=== PATIENT | female | born 1985 | race Caucasian/White ===

== ENCOUNTER 2017-03-19 01:44 | Inpatient (IN) | payer BC ==
[2017-03-19] MEDS ORDERED: HYDROCODONE/APAP (5/325) TAB PO (02:30)
[2017-03-19] MEDS ORDERED: ONDANSETRON 4 MG INJ IV ×2 (02:30→05:00)
[2017-03-19] MEDS: morphine 2 MG INJ IV (03:13)
[2017-03-19] MEDS ORDERED: NACL 0.9% 3 ML SYG IV (05:00)
[2017-03-19] MEDS ORDERED: ACETAMINOPHEN 325 MG TAB PO (05:00)
[2017-03-19] MEDS ORDERED: ALBUTEROL/IPRATROPIUM (NEB) 3 ML AMP HHN (05:00)
[2017-03-19 06:43] LABS: ALANINE AMINOTRANSFERASE 59 IU/L (13-69); ALBUMIN 3.5 g/dl (3.3-4.9); ALBUMIN/GLOBULIN RATIO 1.12; ALKALINE PHOSPHATASE 149 IU/L (42-121); ANION GAP 14 (8-16); ASPARTATE AMINO TRANSFERASE 30 IU/L (15-46); BILIRUBIN,INDIRECT 0.2 mg/dl (0-1.1); BILIRUBIN,TOTAL 0.2 mg/dl (0.2-1.3); BLOOD UREA NITROGEN 14 mg/dl (7-20); CALCIUM 8.3 mg/dl (8.4-10.2); CARBON DIOXIDE 24 mmol/L (21-31); CHLORIDE 107 mmol/L (97-110); GLUCOSE 104 mg/dl (70-220); MAGNESIUM 2.2 mg/dl (1.7-2.5); PHOSPHORUS 2.6 mg/dl (2.5-4.9); POTASSIUM 3.6 mmol/L (3.5-5.1); SODIUM 141 mmol/L (135-144); TOTAL PROTEIN 6.6 g/dl (6.1-8.1)
[2017-03-19 06:47] LABS: HEMOGLOBIN A1C 5.5 % (0-5.9)
[2017-03-19] MEDS: FAMOTIDINE 20 MG TAB PO (09:51)
[2017-03-19] MEDS: ALPRAZOLAM 1 MG TAB PO (09:52)
[2017-03-19] MEDS: HEPARIN 5,000 UNIT/0.5 ML VIAL SC (09:55)
[2017-03-19 11:24] LABS: ADD MAN DIFF? NO
[2017-03-19 11:25] LABS: BASOPHILS % 0.3 % (0.0-2.0); EOSINOPHILS # 0.1 10^3/ul (0.0-0.5); EOSINOPHILS % 0.5 % (0.0-7.0); HEMATOCRIT 36.3 % (37.0-47.0); HEMOGLOBIN 11.4 g/dl (12.0-16.0); LYMPHOCYTES % 30.5 % (15.0-51.0); MEAN CORPUSCULAR HEMOGLOBIN 28.9 pg (29.0-33.0); MEAN CORPUSCULAR HGB CONC 31.4 g/dl (32.0-37.0); MEAN CORPUSCULAR VOLUME 91.9 fl (82.0-101.0); MONOCYTE # 0.6 10^3/ul (0.3-0.9); MONOCYTES % 4.5 % (0.0-11.0); NEUTROPHIL # 8.2 10^3/ul (1.6-7.5); NEUTROPHILS % 63.6 % (39.0-77.0); PLATELET COUNT 288 10^3/UL (140-415); RED BLOOD COUNT 3.95 10^6/ul (4.20-5.40)
== END 2017-03-19 12:10 | disposition home or self-care (01) | DRG 392 ==
LOC: MS2 01:44
DX: R10.9 Unspecified abdominal pain (principal); F41.9 Anxiety disorder, unspecified; R11.2 Nausea with vomiting, unspecified
CPT/HCPCS: 80053; 83036; 83735; 84100; 85025